=== PATIENT | male | born 1975 | race Caucasian/White ===

== ENCOUNTER 2018-04-17 12:17 | Emergency (ER) | payer OTHER ==
--- NOTE | 2018-04-17 14:07 | EDPHY ---
H & P Stated Complaint: Mid sternal pain since 04/14/18, Time Seen by Provider: 04/17/18 13:48 HPI/ROS: CHIEF COMPLAINT: Chest pain HISTORY OF PRESENT ILLNESS: 43-year-old male with hyperlipidemia presents with chest pain. He awoke 2 nights ago with a pounding heart rate. With each heartbeat, he had a vague sensation of achiness. The pounding heartbeat was not rapid and lasted approximately 1-2 minutes. Since then he has had a dull underlying chest discomfort. The chest discomfort increases with exertion. He also has exertional dizziness and sometimes feels like he might faint. Seen by his PCP just prior to arrival. EKG was unremarkable in the office. Cardiac risk factors positive for hyperlipidemia.. Nonsmoker; no family history ; no hypertension or diabetes. REVIEW OF SYSTEMS: complete 10 point ROS reviewed and is negative except for the noted elements in the HPI Source: Patient - Personal History Current Tetanus Diphtheria and Acellular Pertussis (TDAP): Unsure - Medical/Surgical History Hx Asthma: No Hx Chronic Respiratory Disease: No Hx Diabetes: No Hx Cardiac Disease: No Hx Renal Disease: No Hx Cirrhosis: No Hx Alcoholism: No Hx HIV/AIDS: No Hx Splenectomy or Spleen Trauma: No Other PMH: Sinus infections, occasional heartburn. - Family History Significant Family History: No pertinent family hx - Social History Smoking Status: Never smoked Alcohol Use: Sober Drug Use: None - Physical Exam Exam: General Appearance: Alert, pleasant Eyes: Pupils equal and round, no conjunctival pallor or injection ENT, Mouth: Mucous membranes moist Neck: Normal inspection Respiratory: Normal respiratory rate, no chest wall tenderness, Lungs are clear to auscultation Cardiovascular: Regular rate and rhythm Gastrointestinal: Abdomen is soft and nontender Neurological: A&O, nonfocal, normal gait Skin: Warm and dry, no rash Extremities: Nontender, no pedal edema Psychiatric: Mood and affect normal Constitutional: Initial Vital Signs Temperature (C) 36.9 C 04/17/18 12:22 Heart Rate 68 04/17/18 12:22 Respiratory Rate 16 04/17/18 12:22 Blood Pressure 123/76 H 04/17/18 12:22 O2 Sat (%) 95 04/17/18 12:22 O2 Delivery Mode Room Air Allergies/Adverse Reactions: No Known Allergies Allergy (Unverified 06/05/15 13:54) Home Medications: Medication Instructions Recorded traZODone 04/17/18 Medical Decision Making - Diagnostics EKG Interpretation: EKG interpreted by me reveals sinus rhythm, rate 54, no ST or T segment changes. Interpretation: Normal EKG Imaging Results: Chest x-ray independently reviewed by me reveals no acute disease. Imaging: I viewed and interpreted images myself ED Course/Re-evaluation: This patient presents with chest pain and exertional dizziness. Stat EKG reveals no evidence of ischemia or dysrhythmia and chest x-ray is unremarkable. Initial troponin is normal. 1415: Dr. Jean Marie Henao was consulted for chest pain and exertional dizziness. Echocardiogram in process now. This patient was seen and examined by Dr. Henao. Echocardiogram per Dr. Jean Marie Henao is normal. The patient then had a treadmill stress test, which was normal. No evidence of cardiac disease causing patient's symptoms.. The patient will be discharged home. If symptoms continue, he will follow up with Cardiology for consideration of Holter monitoring. Differential Diagnosis: Differential diagnosis includes though it is not limited to pneumonia, pneumothorax, pulmonary embolism, aortic dissection, pericarditis, acute coronary syndrome. - Data Points Laboratory Results: Laboratory Results 04/17/18 13:53 04/17/18 13:53 Point of Care Test Results: Chemistry 04/17/18 14:02 POC Troponin I 0.00 ng/mL ng/mL (0.00-0.08) Departure - Departure Disposition: Home, Routine, Self-Care Clinical Impression: Chest pain Qualifiers: Chest pain type: other chest pain Qualified Code(s): R07.89 - Other chest pain ; R07.8 - Other chest pain Condition: Good Instructions: Chest Pain (ED) Additional Instructions: You had several tests in the ED today, including EKG, ECHO and treadmill stress test. All of these tests are normal. If you continue to have symptom, make an appointment to be seen by [facility]. Return for worsening symptoms or any concerns. Referrals: ROD GUAJARDO MD [Primary Care Provider] - As per Instructions
[2018-04-17 14:12] LABS: PLATELET COUNT 245 10^3/uL (150-400)
--- NOTE | 2018-04-17 16:01 | CPEKG ---
Test Reason : OPEN Blood Pressure : / mmHG Vent. Rate : 054 BPM Atrial Rate : 052 BPM P-R Int : 177 ms QRS Dur : 105 ms QT Int : 454 ms P-R-T Axes : 056 048 026 degrees QTc Int : 431 ms Sinus rhythm Confirmed by Miya Lu ([id number]) on 04/17/2018 4:00:52 PM Referred By: PHYSICIAN ED Confirmed By:Miya Lu
--- NOTE | 2018-04-17 16:18 | GCON ---
DATE OF CONSULTATION: 04/17/2018 INDICATIONS: Palpitations, chest discomfort. HISTORY OF PRESENT ILLNESS: The patient is a pleasant 43-year-old male seen in consultation in the e mergency department. At his baseline, he is a very healthy individual. He does have a history of an xiety and recently diagnosed low testosterone levels. He has no history of cardiovascular disease. His cardiac risk factor profile is, likewise, benign. He states he has been under a great deal of st ress recently. 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 O santiago the weekend on Sunday, he was up at [facility] near [place] with his family at a hotel. O n Sunday evening, he was awakened from sleep with a sensation of "pounding" in his chest. He did not have an accelerated heart rate; however, he did have a more conscious awareness of his heart beating . With this, he had mild chest pressure. His symptoms lasted for several hours and resolved spontan eously. He has also had a several week history of fatigue. He has been prescribed testosterone; how ever, has not taken this medication on a regular basis. On Sunday, he was hiking again with his fami ly. When he was hiking., he again had a sensation that his chest was pounding, associated with mild chest pressure. Furthermore, he has had intermittent episodes of lightheadedness. He notes this mos tly when he stands up quickly. He has not had chelsie loss of consciousness. He has had similar sympt oms when he goes up and down stairs at home. Today, he had a regular visit for followup with his PCP regarding his low testosterone levels. After he related these symptoms, he was advised to come to [facility] emergency department. In the emergency department, he was hemodynamically stable. Cardiac enzymes were negative. He had n o oxygen requirement. Chest x-ray was unremarkable. Remainder of his labs done in the emergency dep artment were normal. REVIEW OF SYSTEMS: A full 10-point review of systems was performed, was otherwise negative. PAST MEDICAL HISTORY: Low testosterone levels. SURGICAL HISTORY: No pertinent surgical history. CURRENT MEDICATIONS: He takes trazodone at night for sleep. SOCIAL HISTORY: He is . He has 2 twin children ages 9. 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 He does not smoke. He drinks alcohol. He exercises regularly, usually vig orously 2 or 3 times a week. FAMILY HISTORY: There is no significant family history for premature cardiovascular disease or arrhy thmia with the exception of his elderly mother suffering from atrial fibrillation. PHYSICAL EXAMINATION: VITAL SIGNS: Blood pressure 123/76, mean 91, room air saturation 95, heart ra te 68. He is afebrile. GENERAL: A healthy white male, in no acute distress. He is alert and orien agata with a pleasant mood and affect. He is conversive. HEENT: Normocephalic, atraumatic. He has a nicteric sclerae. Oropharynx unremarkable. NECK: Carotids 2+ bilaterally with no bruits. No jugul ar venous distention. RESPIRATORY: He is breathing easily, resting comfortably, using no accessory muscles. On auscultation, he has clear lung blair bilaterally. CARDIAC: Precordial inspection is unremarkable. He has no reproducible chest wall tenderness. PMI is nondisplaced. On auscultation, he has a regular rate and rhythm without murmurs, gallops, rubs. ABDOMEN: Soft, nontender. Normoac tive bowel sounds. No masses. Non-palpable aorta. EXTREMITIES: Warm, well perfused. No evidence of edema. VASCULATURE: Nonpalpable aorta, 2+ radial pulses, 2+ dorsal pedal pulses. NEUROLOGIC: A lert and oriented x3. Moves all 4 limbs spontaneously. DATABASE: See HPI. IMPRESSION: The patient is 43 years old with a benign cardiac risk factor profile, seen in the emerg ency department with a several-day history of a sensation of "pounding" in his chest. This has awake anna from sleep. Additionally, he has had symptoms of mild dyspnea and similar chest symptoms when he goes up and down stairs, and on at least 1 occasion when he has been hiking with his children. In [facility] emergency department here, he is stable. His workup thus far has been negative. Specifically, he has had normal ECG, a negative D-dimer, normal electrolytes, and negative troponin. A bedside echo was unremarkable as well. Overall, I think his symptoms are most consistent with stress and anxiety. Underlying ischemic heart disease is certainly on the differential diagnosis; however, I think is m uch less likely. There is no indication of pulmonary embolism or infectious process. Additionally, there is no history of that suggests aortic dissection. RECOMMENDATIONS: He will be scheduled for regular stress test. Provided this is normal, I think he can be discharged home with followup with his PCP. We are happy to see him back in the outpatient se tting if he continues to have symptoms. At that point, I would consider outpatient Holter monitoring . /[id number]/MODL
[2018-04-17 16:49] VITALS: BP 125/78
--- NOTE | 2018-04-17 17:10 | ECHO ---
[email or web address] [address] [address] Main: [phone] Fax: Transthoracic Echocardiogram Name: MARGO DIAZ MR#: [id number] Study Date: 04/17/2018 Study Time: 02:17 PM Date of : 1975 Age: 43 year(s) Height: 177.8 cm (70 in.) Weight: 101.15 kg (223 lb.) BSA: 2.19 m2 Gender: Male Examination: Echo Indication: exertional dizziness, cp Image Quality: Technically Difficult Contrast: Requested by: Karen Moses BP: / Heart Rate: Rhythm: Indication: exertional dizziness, cp Procedure Staff Line Out Man: Samia Rosales RDCS Reading Physician: Bentley Henao MD Requesting Provider: Conclusions: Normal size left ventricle. Normal global systolic LV function. EF is 58 %. Normal diastolic LV function. Mild mitral valve regurgitation is present. Mild tricuspid regurgitation is present. There are no significant valvular abnormalities. Measurements: Chambers Valvular Assessment AV/MV Valvular Assessment TV/PV Normal Normal Normal Name Value Range Name Value Range Name Value Range Ao Sherice (2D): 3.3 cm (1.4 cm-2.6 AV Vmax: 1.01 m/s (1 m/s-1.7 PV Vmax: 0.81 m/s (0.6 m/s-0.9 cm) m/s) m/s) IVSd (2D): 1.0 cm (0.6 cm-1.1 AV maxP mmHg ( - ) PV PGmax: 3 mmHg ( - ) cm) AV meanP mmHg ( - ) LVDd (2D): 4.6 cm (4.2 cm-5.9 LVOT Vmax: 0.66 m/s (0.7 m/s-1.1 cm) m/s) LVDs (2D): 3.1 cm (2.1 cm-4 NOHEMI (Vmax): 2.5 cm2 ( - ) cm) NOHEMI (VTI): 2.7 cm ( - ) LVPWd (2D): 0.9 cm (0.6 cm-1 MV E Vmax: 0.63 m/s ( - ) cm) MV A Vmax: 0.47 m/s ( - ) LVOTd 2.2 cm 2.2 cm mm MV E/A: 1.34 ( - ) LVEF (BP): 58 % (>=55 %) MV PHT: 0.062 s ( - ) RVDd(2D): 3.9 cm (1.9 cm-3.8 cmmm) MVA (PHT): 3.5 s ( - ) Continued Measurements: Chambers Valvular Assessment AV/MV Patient: MARGO DIAZ Study Date: 04/17/2018 Page 1 of 2 02:17 PM Name Value Name Value LADs: 3.4 cm MV DecTime: 201 m/s MV E/E' Septal: 7.50 MV E/E' Lateral: 5.00 Additional Vessels Name Value Ao Ascendin.1 cm Findings: Left Ventricle: Normal size left ventricle. No LV hypertrophy. Normal global systolic LV function. EF is 58 %. Normal diastolic LV function. Right Ventricle: Normal size right ventricle. Normal RV function. Left Atrium: The left atrium is normal in size. Right Atrium: The right atrium is normal in size. Mitral Valve: The mitral valve is normal in appearance and function. Mild mitral valve regurgitation is present. No mitral stenosis is present. Aortic Valve: The aortic valve is tri-leaflet. There is no significant aortic valve regurgitation. No aortic valve stenosis is present. Tricuspid Valve: The tricuspid valve is normal in appearance and function. Mild tricuspid regurgitation is present. Pulmonic Valve: The pulmonic valve is normal in appearance and function. Aorta: The aorta is normal. Normal size aortic root measuring 3.3 cm. Normal size ascending aorta measuring 3.1 cm. IVC: Technically difficult subcostal. Pericardium: No pericardial effusion. No pleural effusion. (No Signature Object) Patient: MARGO DIAZ Study Date: 04/17/2018 Page 2 of 2 02:17 PM [id number]
--- NOTE | 2018-04-18 03:17 | CPR ---
PROCEDURE: Exercise treadmill stress test. SUPERVISING REEL TENDER: Bentley Henao MD. INDICATION FOR PROCEDURE: Episodes of palpitations with mild chest pressure. PRE: After obtaining informed consent, patient was placed on electrocardiogram. Initial EKG shows s inus rhythm, normal axis, no significant Q, ST or T-wave abnormalities suggesting of ischemia. Initi al blood pressure 100/64, saturation 96% on room air. The patient does state that he has a mild left upper chest pressure, reporting he has had all day long which has not worsened with exertion. STRESS: The patient was placed on exercise treadmill, following standard Jose protocol with the fol [facility] findings. 1. Patient exercised for 8 minutes 6 seconds. 2. Patient obtained a heart rate of 174 beats per minute, which was 97% of MPHR. 3. 9.3 METS. 4. Patient reported no worsening in his upper chest pressure or new chest pressure suggesting of isc hemia or any other symptoms suggesting of ischemia. 5. The patient had no ST shifts suggesting of ischemia at peak exercise. 6. No arrhythmias were noted during rest, stress, or recovery phase. 7. SpO2 remained greater than 90% throughout testing. 8. BP response: Rest 100/64, peak 180/86. 9. Testing was stopped due to maximum effort. 10. Deras treadmill score of 8, placing patient at low cardiovascular risk. RECOVERY: Patient recovered for 5 minutes with heart rate and BP returning to baseline, remained asy mptomatic of any symptoms suggesting of ischemia. His vital signs were stable. He was taken back to the emergency department. IMPRESSION: A 43-year-old male with episodes of palpitation and chest pressure, noting normal electr ocardiogram with negative troponins, undergoing exercise treadmill testing for evaluation of ischemia . Able to exercise 8 minutes with no significant ST shifts suggesting of ischemia. No exertional ch est pressure or symptoms suggesting of ischemia at exercise. Deras treadmill score of 8, placing him at low cardiovascular risk. Results were discussed with Dr. Henao and Dr. Andrade. /[id number]/MODL
== END 2018-04-17 16:51 | disposition home or self-care (01) ==
DX: R07.89 Other chest pain (principal); E78.5 Hyperlipidemia, unspecified
CPT/HCPCS: 84484-ER